=== PATIENT | female | born 1980 ===

== ENCOUNTER → 2017-12-25 | Emergency (ER) | payer OTHER ==
[~2017-12-25] VITALS: Ht 154.9 cm; Wt 85.3 kg
[~2017-12-25] MED LIST: DOCUSATE SODIU100 MG PO; HIBICLENS118 ML TOP; IRON1TAB4 PO; KETO10TA2 PO; Mylicon 125MG PO; OXYC1TAB9 PO; PRENATE ADVANCE PO; YEAST
== END | disposition home or self-care (01) ==
LOC: ER 08:49
DX: M54.5 Low back pain (principal)